=== PATIENT | male | born 1945 | race Caucasian/White ===

== ENCOUNTER 2016-08-30 07:08 | Outpatient (CLI) | payer MEDICARE, OTHER ==
[2016-08-30 08:30] LABS: ALT (SGPT) 22 U/L (0-55); AST (SGOT) 21 U/L (5-34); Alkaline Phosphatase 61 U/L (40-150); Anion Gap 15 mmol/L (10-20); BUN (Urea Nitrogen) 20 mg/dL (8.4-25.7); Bilirubin, Total 0.3 mg/dL (0.2-1.2); Calc. Creatinine Clearance 0 mL/min (70-130); Calcium 8.8 mg/dL (7.8-10.44); Carbon Dioxide 24 mmol/L (23-31); Chloride 107 mmol/L (98-107); Estimated GFR-MDRD 90; Globulin 2.6 g/dL (2.4-3.5); LDL Cholesterol, Calculated 111 mg/dL; Protein, Total 6.8 g/dL (5.8-8.1)
[2016-08-30 08:42] LABS: Free T3 2.63 pg/mL (1.71-3.71)
== END 2016-08-30 07:09 ==
LOC: NAV LAB 07:08
PROVIDERS: ATTEND Family Medicine
DX: Z12.5 Encounter for screening for malignant neoplasm of prostate (principal); E03.9 Hypothyroidism, unspecified; E78.5 Hyperlipidemia, unspecified
CPT/HCPCS: 80053; 80061; 84439; 84443; 84481; G0103

== ENCOUNTER 2016-09-27 09:24 | Outpatient (CLI) | payer MEDICARE, OTHER ==
[2016-09-27 10:44] LABS: Hemoglobin A1c 5.1 % (4.0-6.0)
[2016-09-27 10:45] LABS: Anion Gap 13 mmol/L (10-20); BUN (Urea Nitrogen) 25 mg/dL (8.4-25.7); Calc. Creatinine Clearance 0 mL/min (70-130); Calcium 8.8 mg/dL (7.8-10.44); Carbon Dioxide 23 mmol/L (23-31); Chloride 108 mmol/L (98-107); Estimated GFR-MDRD 89; Glucose 109 mg/dL (80-115); Potassium 4.3 mmol/L (3.5-5.1); Sodium 140 mmol/L (136-145)
== END 2016-09-27 09:25 | disposition home or self-care (01) ==
LOC: NAV LAB 09:24
PROVIDERS: ATTEND Family Medicine
DX: R73.09 Other abnormal glucose (principal)
CPT/HCPCS: 80048; 83036

== ENCOUNTER 2019-01-03 08:08 | Outpatient (CLI) | payer MEDICARE, BC ==
[2019-01-03] MEDS ORDERED: Iopamidol 370 76% 100 ML VIAL ONE (09:00)
--- NOTE | 2019-01-03 10:33 | CT ---
CT ABDOMEN AND PELVIS WITH CONTRAST: Multiple axial tomograms were obtained through the abdomen and pelvis with IV enhancement. INDICATION: Hematuria. FINDINGS: Lung bases clear. The liver, spleen, and pancreas are unremarkable. Adrenal glands normal. Kidneys unremarkable. Small bowel loops appear normal. Stool throughout the colon. Diverticulosis of the left colon and sigmoid colon. No definite CT evid ence of diverticulitis. Aorta shows atherosclerotic change without aneurysmal dilatation. Adrenal glands and kidneys unremarkable. No hydronephrosis. No evidence of renal mass lesion. Urin timothy bladder is mildly distended and is suboptimally evaluated due to spray artifact from the right hi p prosthesis. Prostate upper normal size with prostatic calcification noted. IMPRESSION: 1. No acute urinary tract abnormality identified. Urinary bladder is suboptimally evaluated due to spray artifact. 2. Diverticulosis of the left colon and sigmoid. POS: [facility]
[2019-01-03 20:49] LABS: Bilirubin Negative (Negative); Blood, Urine Negative (Negative); Clarity Clear (Clear); Glucose, Urine (Dipstick) Negative (Negative); Leukocyte Negative (Negative); Nitrite Negative (Negative); Protein, Urine (Dipstick) Negative (Neg-Trace); Urobilinogen 0.2 mg/dL (Less than 2)
== END 2019-01-03 08:09 | disposition home or self-care (01) ==
LOC: NAV CT 08:08
PROVIDERS: ATTEND Urology
DX: R31.0 Gross hematuria (principal)
CPT/HCPCS: 36415; 74177; 81003; 82565; 84153; Q9967

== ENCOUNTER 2021-04-30 08:19 | Emergency (ER) | payer MEDICARE, BC ==
[2021-04-30 08:56] LABS: #Basophils 0.1 thou/uL (0.0-0.2); #Eosinphils 0.1 thou/uL (0.0-0.7); #Lymphocytes 0.9 thou/uL (1.20-3.40); #Monocytes 0.4 thou/uL (0.11-0.59); #Neutrophils 7.4 thou/uL (1.40-6.50); %Basophils 0.8 % (0.0-1.0); %Lymphocytes 9.9 % (21.0-51.0); %Monocytes 4.6 % (0.0-10.0); %Neutrophils 83.7 % (42.0-75.0); Hemoglobin 12.4 g/dL (14.0-18.0); Mean Corpuscular HGB CONC 34.7 g/dL (32.0-36.0); Mean Corpuscular Volume 92.4 fL (78.0-98.0); Mean Platelet Volume 7.2 fL (7.4-10.4); Platelet Count 208 thou/uL (130-400); RBC Distribution Width 11.5 % (11.5-14.5); Red Blood Cell (RBC) Count 3.87 mill/uL (4.70-6.10); White Blood Cell (WBC) Count 8.8 thou/uL (4.8-10.8)
[2021-04-30 09:10] LABS: ALT (SGPT) 21 U/L (8-55); AST (SGOT) 19 U/L (5-34); Alkaline Phosphatase 62 U/L (40-110); Anion Gap 13 mmol/L (10-20); BUN (Urea Nitrogen) 14 mg/dL (8.4-25.7); Bilirubin, Total 0.6 mg/dL (0.2-1.2); Calc. Creatinine Clearance 0 mL/min (70-130); Calcium 9.5 mg/dL (7.8-10.44); Carbon Dioxide 26 mmol/L (23-31); Chloride 100 mmol/L (98-107); Globulin 3.4 g/dL (2.4-3.5); Glucose 159 mg/dL (83-110); Potassium 3.9 mmol/L (3.5-5.1); Protein, Total 7.4 g/dL (5.8-8.1); Sodium 135 mmol/L (136-145)
== END 2021-04-30 10:00 | disposition home or self-care (01) ==
LOC: NAV ERS 08:19
DX: R33.9 Retention of urine, unspecified (principal); E78.00 Pure hypercholesterolemia, unspecified; K21.9 Gastro-esophageal reflux disease without esophagitis; Z79.899 Other long term (current) drug therapy
CPT/HCPCS: 80053; 85025; 99283